=== PATIENT | female | born 1955 | race Caucasian/White ===

== ENCOUNTER → 2017-03-08 | Outpatient (CLI) | payer BC ==
--- NOTE | 2017-03-08 11:08 | RAD ---
DATE: 03/08/2017. EXAM: DIGITAL DIAGNOSTIC LT, ULTRASOUND BREAST LEFT. HISTORY: Nodule on mammographic screening. Additional views are requested. COMPARISON: 03/02/2017. 03/19/2014, 03/14/2013. This study was interpreted with the benefit of Computerized Aided Detection (CAD). FINDINGS: The breast parenchyma is heterogeneously dense, which could reduce sensitivity of mammography. Breast parenchyma level C.. The focus of concern medially on the left CC view is not reproduced on additional images. There is no suspicious finding at that site. Ultrasound of the left medial breast demonstrates no suspicious nodule or correlate for microcalcifications. Only normal parenchyma is seen. The visualized portions of the left breast implant appear intact. There are new clustered linearly oriented calcifications slightly medial and superior to the nipple line. Most are punctate, but there are a few more linear forms. BI-RADS CATEGORY: 4 SUSPICIOUS ABNORMALITY-BIOPSY SHOULD BE CONSIDERED. RECOMMENDED FOLLOW-UP: BIO BIOPSY RECOMMENDED. Stereotactically guided biopsy of new clustered calcifications slightly superomedial to the left nipple is recommended. PQRS compliance statement: Patient information was entered into a reminder system with a target due date (now) for the next mammogram. Mammography is a sensitive method for finding small breast cancers, but it does not detect them all and is not a substitute for careful clinical examination. A negative mammogram does not negate a clinically suspicious finding and should not result in delay in biopsying a clinically suspicious abnormality. "Our facility is accredited by the [employer] Mammography Program."
== END | disposition home or self-care (01) ==
LOC: MAMMO 08:56
PROVIDERS: ATTEND Internal Medicine
DX: R92.1 Mammographic calcification found on diagnostic imaging of breast (principal); Z98.82 Breast implant status
CPT/HCPCS: 76641; G0206; 77065